=== PATIENT | male | born 1960 | race Caucasian/White ===

== ENCOUNTER 2017-10-24 09:01 | Emergency (ER) | payer BC ==
[~2017-10-24] VITALS: Ht 185.4 cm; Wt 99.8 kg
[2017-10-24] MEDS ORDERED: ONDANSETRON HCL INJ 2 MG/ML VIAL IV STA (09:16)
[2017-10-24] MEDS ORDERED: SODIUM CHLORIDE 0.9% 1000ML 1,000 ML IV STA ×2 (09:16→09:31)
[2017-10-24] MEDS ORDERED: MORPHINE SULFATE 2 MG/ML SYR IV STA (09:16)
[2017-10-24] MEDS ORDERED: CIPROFLOXACIN 400 MG/D5W 200ML 200 ML IV ONE (09:30)
[2017-10-24 09:47] LABS: BASOPHILS % 0.2 % (0.0-1.0); EOSINOPHILS % 0.5 % (0.0-6.0); HEMATOCRIT 40.4 % (38.2-49.6); HEMOGLOBIN 14.2 g/dL (14.0-18.0); LYMPHOCYTES % 11.1 % (18.0-39.1); MEAN CORPUSCULAR HEMOGLOBIN 31.8 pg (28-32); MEAN CORPUSCULAR HGB CONC 35.1 g/dL (31-35); MEAN CORPUSCULAR VOLUME 90.6 fL (81-99); MONOCYTES % 11.5 % (4.4-11.3); NEUTROPHILS # (AUTO) 6.7 (2.1-6.9); NEUTROPHILS % 76.4 % (38.7-80.0); PLATELET COUNT 194 x10e3/uL (140-360); RED BLOOD COUNT 4.46 x10e6/uL (4.3-5.7); RED CELL DISTRIBUTION WIDTH 12.3 % (11.7-14.4)
[2017-10-24 10:03] LABS: BILIRUBIN,URINE NEGATIVE (NEGATIVE); CLARITY,URINE CLEAR (CLEAR); COLOR,URINE YELLOW (YELLOW); KETONES,URINE NEGATIVE (NEGATIVE); LEUKOCYTE ESTERASE ,URINE NEGATIVE (NEGATIVE); NITRITE,URINE NEGATIVE (NEGATIVE); PROTEIN,URINE DIPSTICK NEGATIVE (NEGATIVE); URINE UROBILINOGEN 0.2 mg/dL (0.2 - 1)
--- NOTE | 2017-10-24 10:03 | Diagnostic Imaging Report ---
PROCEDURE: CHEST SINGLE (PORTABLE) COMPARISON: None. INDICATIONS: VOMITING, STOMACH PAIN, DIARRHEA FINDINGS: The lungs are well-expanded. No focal airspace consolidation, pleural effusion, or pneumothorax. Right suprahilar opacity is felt to represent hypertrophy and/or posttraumatic change of the right anterior first costochondral junction. No pleural effusion or pneumothorax. Cardiomediastinal contour and pulmonary vasculature are within normal limits when accounting for portable, AP technique. Posttraumatic deformity of the midshaft of the right clavicle and probably anterior second rib. CONCLUSION: No acute cardiopulmonary abnormality. Dictated by: Panda Sexton M.D. on 10/24/2017 at 10:03 Electronically approved by: Panda Sexton M.D. on 10/24/2017 at 10:03
[2017-10-24 10:08] LABS: CREATINE KINASE 91 IU/L (30-200)
[2017-10-24 10:11] LABS: ALANINE AMINOTRANSFERASE 26 IU/L (0-55); ALBUMIN 3.3 g/dL (3.5-5.0); ALBUMIN/GLOBULIN RATIO 1.2 (0.8-2.0); ALKALINE PHOSPHATASE 53 IU/L (40-150); ANION GAP 9.8 mmol/L (8-16); BLOOD UREA NITROGEN 15 mg/dL (7-26); BUN/CREATININE RATIO 15 (6-25); CALCIUM 8.7 mg/dL (8.4-10.2); CARBON DIOXIDE 25 mmol/L (22-29); CHLORIDE 100 mmol/L (98-107); CREATININE, SERUM 0.98 mg/dL (0.72-1.25); EST GLOMERULAR FILTRATION RATE > 60 ML/MIN (60-); GLUCOSE 104 mg/dL (74-118); LIPASE 18 U/L (8-78); MAGNESIUM 1.5 MG/DL (1.3-2.1); POTASSIUM 3.8 mmol/L (3.5-5.1); SODIUM 131 mmol/L (136-145)
[2017-10-24 10:19] LABS: EPITHELIAL CELLS,URINE RARE /LPF; MUCUS,URINE RARE (RARE)
[2017-10-24 11:28] VITALS: BP 127/68
[2017-10-24 11:44] LABS: BAND NEUTROPHILS % (MANUAL) 2 %; LYMPHOCYTES % (MANUAL) 9 % (19-48); MONOCYTES % (MANUAL) 9 % (3.4-9.0); NEUTROPHILS % (MANUAL) 79 % (40-74)
[2017-10-24 11:45] LABS: ANISOCYTOSIS SLIGHT; PLATELET ESTIMATE ADEQUATE; PLATELET MORPHOLOGY COMMENT FEW LARGE; RBC MORPHOLOGY COMMENT NORMAL
== END 2017-10-24 12:09 | disposition home or self-care (01) ==
LOC: ER 09:01
DX: R10.9 Unspecified abdominal pain (principal); R19.7 Diarrhea, unspecified; K52.9 Noninfective gastroenteritis and colitis, unspecified
CPT/HCPCS: 36415; 71045; 80053; 81001; 82550; 82553; 83690; 83735; 84484; 85025; 87086; 93005; 99284; J0744; J2405; J7030